=== PATIENT | female | born 1960 | race Caucasian/White ===

== ENCOUNTER 2018-01-13 13:49 | Emergency (ER) | payer SELFPAY ==
[~2018-01-13] VITALS: Ht 160 cm; Wt 53.6 kg
[2018-01-13 13:59] VITALS: TEMP 36.9; Ht 160 cm; Wt 53.6 kg
[2018-01-13] MEDS ORDERED: ONDANSETRON INJ 2 MG/ML 2 ML VIAL IV STA (14:11)
[2018-01-13] MEDS ORDERED: SODIUM CHLORIDE 0.9% 1000ML 1,000 ML IV STA ×2 (14:11)
[2018-01-13] MEDS ORDERED: FAMOTIDINE 20MG/5ML IV PUSH IV STA (14:11)
[2018-01-13] MEDS ORDERED: HYDROmorphone INJ 1 MG/ML SYR IV PRN (14:15)
--- NOTE | 2018-01-13 14:32 | DIAGNOSTIC IMAGING REPORT ---
CHEST ONE VIEW PORTABLE CLINICAL HISTORY: Abdominal pain. COMPARISON STUDY: No previous studies for comparison. FINDINGS: Upper abdominal surgical clips are noted. No lucency is identified under the hemidiaphragms to suggest pneumoperitoneum. Lung volumes are normal. No consolidation is noted. There is no evidence for pulmonary edema. There is mild dextroscoliosis of the lower thoracic spine. Cardiomediastinal silhouette is normal. IMPRESSION: No acute cardiopulmonary findings. Electronically signed by: Reid Esquivel M.D. 01/13/2018 2:31 PM Dictated Date/Time: 01/13/2018 2:28 PM
[2018-01-13 14:54] LABS: BASO % 0.2 %; BASO ABS # 0.02 K/uL (0-0.2); EOS % 0.6 %; EOS ABS # 0.08 K/uL (0-0.5); HEMATOCRIT 43.5 % (37-47); HEMOGLOBIN 14.7 g/dL (12.0-16.0); IG# 0.02 K/uL (0.00-0.02); LYMPH % 27.1 %; LYMPH ABS # 3.43 K/uL (1.2-3.4); MEAN CELL VOLUME 88.4 fL (80-100); MEAN CORPUSCULAR HEMOGLOBIN 29.9 pg (25-34); MEAN CORPUSCULAR HGB CONC 33.8 g/dl (32-36); MEAN PLATELET VOLUME 10.6 fL (7.4-10.4); MONO % 7.7 %; MONO ABS # 0.97 K/uL (0.11-0.59); NEUT % 64.2 %; NEUT ABS # 8.14 K/uL (1.4-6.5); PLATELET COUNT 256 K/uL (130-400); RED CELL DISTRIBUTION WIDTH CV 14.7 % (11.5-14.5); RED CELL DISTRIBUTION WIDTH SD 47.4 fL (36.4-46.3); WHITE BLOOD COUNT 12.66 K/uL (4.8-10.8)
--- NOTE | 2018-01-13 15:05 | DIAGNOSTIC IMAGING REPORT ---
ABD/PELVIS NO IV OR ORAL CONT CLINICAL HISTORY: 57 years-old Female presenting with acute abdominal pain, vomiting, upper. prior gastric bypass. TECHNIQUE: Multidetector CT of the abdomen and pelvis was performed without the use of intravenous contrast. IV contrast: None. A dose lowering technique was used consistent with the principles of ALARA (as low as reasonably achievable). COMPARISON: None. CT DOSE (mGy.cm): The estimated cumulative dose is 255.03 mGy.cm. FINDINGS: Labourers topogram: Unremarkable. Lung bases: Mosaic attenuation could suggest small airways disease. Normal heart size. No pericardial or pleural effusion. 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 Normal density. Biliary: No gross biliary ductal dilatation allowing for noncontrast technique. Normal gallbladder. Pancreas: Normal noncontrast appearance. Spleen: Few parenchymal calcifications could suggest prior granulomatous infection. Adrenal glands: Normal noncontrast appearance. Kidneys and ureters: Normal noncontrast appearance. No nephrolithiasis. No hydronephrosis. Ureters not well visualized. Bladder: Incompletely evaluated secondary to underdistention. Pelvic organs: Uterus surgically absent. Fluid density region in the left hemipelvis (series 3 image 295), most likely bowel. Bowel: Mild stool burden throughout normal caliber colon. The appendix is normal and located in the right upper quadrant. Slight narrowing at a suspected mesenteric defect (series 3 image 151). Mild upstream distention of a loop of small bowel (series 3 image 99), which measures 3.5 cm in diameter. This is essentially at the distal small bowel anastomosis. No complete bowel obstruction. Postsurgical changes of right retrocolic Bob-en-Y gastric bypass. Distal anastomosis is patent. Pancreaticobiliary limb nondilated. Excluded stomach nondilated though containing small amount of gas. Intraesophageal fluid noted. Peritoneal cavity: No free fluid or intraperitoneal gas. Lymph nodes: No gross lymphadenopathy allowing for noncontrast technique. Vasculature: Atherosclerosis of the normal caliber abdominal aorta. Abdominal wall: Small fat-containing umbilical hernia. Musculoskeletal: Normal. IMPRESSION: 1. Postsurgical changes of retrocolic Bob-en-Y gastric bypass. No complete bowel obstruction though slight narrowing evident in a loop of small bowel in the left upper quadrant abscess suspected mesenteric defect. There is slight dilation of bowel upstream to this, which could suggest mild low-grade partial obstruction. No other complication is evident. 2. No other evidence of acute intra-abdominal pathology. 3. Status post hysterectomy. Electronically signed by: Manjinder Anthony M.D. 01/13/2018 3:04 PM Dictated Date/Time: 01/13/2018 2:54 PM
[2018-01-13 15:08] LABS: ALBUMIN 4.2 gm/dl (3.4-5.0); ALT/SGPT 15 U/L (12-78); AST/SGOT 12 U/L (15-37); BLOOD UREA NITROGEN 10 mg/dl (7-18); CALCIUM 9.4 mg/dl (8.5-10.1); CARBON DIOXIDE 27 mmol/L (21-32); CREATININE 0.73 mg/dl (0.60-1.20); GLUCOSE 83 mg/dl (70-99); LIPASE 92 U/L (73-393); POTASSIUM 3.7 mmol/L (3.5-5.1); SODIUM 140 mmol/L (136-145)
[2018-01-13] MEDS ORDERED: ACET-1256 PO (15:10)
[2018-01-13] MEDS ORDERED: PANT40TA PO (15:10)
[2018-01-13 15:13] LABS: ALKALINE PHOSPHATASE 95 U/L (45-117)
[2018-01-13] MEDS ORDERED: ONDA8TAB62 SL (17:26)
[2018-01-13] MEDS ORDERED: HYDR-3419 PO (17:26)
--- NOTE | 2018-01-13 17:42 | Discharge Instructions ---
Discharge Instructions Date of Service January 13, 2018. Admission Reason for Admission: Severe Stomach Pain N/V Unable To Eat Past 5 Days Discharge Discharge Diagnosis / Problem: partial small bowel obstruction Discharge Goals Goal(s): Diagnostic testing, Therapeutic intervention Activity Recommendations Activity Limitations: resume your previous activity . Instructions / Follow-Up Instructions / Follow-Up partial small bowel obstruction -fortunately neither your CT or physical exam are consistent with a trapped hernia, truly trapped bowel, or any other catastrophic findings. more than likely this is an obstruction from scar tissue - generally when someone has an abdominal surgery, bands of scar tissue can form, and the intestines can get "kinked" around that scar tissue. fortunately, in about 95% of cases, the intestines "wiggle their way free" over several days and the obstruction resolves -for now, since your clear preference would be to try to manage this at home, and their are no catastrophic signs on exam/CT/labwork - we'll have you work on taking care of this from home -pain control -- use the hydrocodone/acetaminophen up to every six hours as needed for pain. if you're having really intense pain, pain that doesn't improve with the pain meds, or pain that lasts instead of the previous pattern of coming and going, those would be possible signs that your intestines are compromised and you should come back right away -nausea control - use the ondansetron up to every six hours as needed for nausea ; as a good rule for safety, if you're not able to drink liquids, and have nausea that isn't getting settled with the nausea medication, we'd want you back for further evaluation and/or admission -diet - until your pain/nausea are gone, and your bowels are moving more, we'll want you to just be on a clear liquid diet -- make sure you're staying adequately hydrated (a reasonable benchmark would be about 60-70 ounces of fluid a day) -- once Bucky Mendoza sees that you're doing better and things have resolved, then you'll be able to get back (slowly, over a day or two) to a regular diet -duration - typically a small bowel obstruction is about a 3 day hospital admission, on average. something on the order of 95% of cases self-resolve, but that does mean that there's a small but real chance that this could end in needing a surgery. to keep you safe, an arbitrary but reasonable line in the sand is if it's not clear that this is resolving by Monday 01/15, we should have you back in the hospital for further evaluation and a surgical consult. as we discussed, there's about a 5% chance that this could end up with you having to come back, be admitted, and have a surgery -- and a very small but not zero chance of this actually worsening to where you would not only need a surgery to break scar tissue and free up the obstruction, but where you could have bowel that needs to be resected. -follow up with Bucky Mendoza tomorrow, and then daily until you're clearly all better. he'll need to examine your abdomen to ensure things still examine reassuring (nothing that has evolved to resemble a "surgical abdomen"), he'll examine to check your hydration status, and he'll help "keep you safe from you! " on the duration/severity/etc. if need arises and you're not getting better, he can also call us as hospitalists directly to have you admitted and save the repeat trip through the ER ([phone], and have the drilling field operator page the admitting hospitalist for Dalila Campuzano) despite all of the above, your abdomen does examine really reassuring, and hopefully this will just start to slowly improve. go slow with oral intake, pay attention to your symptoms, and don't hesitate to come back if anything seems at all bad or scary. Current Hospital Diet Patient's current hospital diet: Discharge Diet Recommended Diet: Clear Liquid Diet Procedures Procedures Performed: ] ABD/PELVIS NO IV OR ORAL CONT CLINICAL HISTORY: 57 years-old Female presenting with acute abdominal pain, vomiting, upper. prior gastric bypass. TECHNIQUE: Multidetector CT of the abdomen and pelvis was performed without the use of intravenous contrast. IV contrast: None. A dose lowering technique was used consistent with the principles of ALARA (as low as reasonably achievable). COMPARISON: None. CT DOSE (mGy.cm): The estimated cumulative dose is 255.03 mGy.cm. FINDINGS: Drywall Metal Stud Worker topogram: Unremarkable. Lung bases: Mosaic attenuation could suggest small airways disease. Normal heart size. No pericardial or pleural effusion. 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 Normal density. Biliary: No gross biliary ductal dilatation allowing for noncontrast technique. Normal gallbladder. Pancreas: Normal noncontrast appearance. Spleen: Few parenchymal calcifications could suggest prior granulomatous infection. Adrenal glands: Normal noncontrast appearance. Kidneys and ureters: Normal noncontrast appearance. No nephrolithiasis. No hydronephrosis. Ureters not well visualized. Bladder: Incompletely evaluated secondary to underdistention. Pelvic organs: Uterus surgically absent. Fluid density region in the left hemipelvis (series 3 image 295), most likely bowel. Bowel: Mild stool burden throughout normal caliber colon. The appendix is normal and located in the right upper quadrant. Slight narrowing at a suspected mesenteric defect (series 3 image 151). Mild upstream distention of a loop of small bowel (series 3 image 99), which measures 3.5 cm in diameter. This is essentially at the distal small bowel anastomosis. No complete bowel obstruction. Postsurgical changes of right retrocolic Bob-en-Y gastric bypass. Distal anastomosis is patent. Pancreaticobiliary limb nondilated. Excluded stomach nondilated though containing small amount of gas. Intraesophageal fluid noted. Peritoneal cavity: No free fluid or intraperitoneal gas. Lymph nodes: No gross lymphadenopathy allowing for noncontrast technique. Vasculature: Atherosclerosis of the normal caliber abdominal aorta. Abdominal wall: Small fat-containing umbilical hernia. Musculoskeletal: Normal. IMPRESSION: 1. Postsurgical changes of retrocolic Bob-en-Y gastric bypass. No complete bowel obstruction though slight narrowing evident in a loop of small bowel in the left upper quadrant abscess suspected mesenteric defect. There is slight dilation of bowel upstream to this, which could suggest mild low-grade partial obstruction. No other complication is evident. 2. No other evidence of acute intra-abdominal pathology. 3. Status post hysterectomy. Electronically signed by: Manjinder Anthony M.D. Pending Studies Studies pending at discharge: no Laboratory Results Last 24 Hours Test 01/13/18 00:00 01/13/18 14:20 Urine Color YELLOW Urine Appearance CLEAR Urine pH 5.0 Urine Specific [place] 1.016 Urine Protein NEG Urine Glucose (UA) NEG Urine Ketones NEG Urine Occult Blood NEG Urine Nitrite NEG Urine Bilirubin NEG Urine Urobilinogen NEG Urine Leukocyte Esterase NEG White Blood Count 12.66 K/uL Red Blood Count 4.92 M/uL Hemoglobin 14.7 g/dL Hematocrit 43.5 % Mean Corpuscular Volume 88.4 fL Mean Corpuscular Hemoglobin 29.9 pg Mean Corpuscular Hemoglobin Concent 33.8 g/dl Platelet Count 256 K/uL Mean Platelet Volume 10.6 fL Neutrophils (%) (Auto) 64.2 % Lymphocytes (%) (Auto) 27.1 % Monocytes (%) (Auto) 7.7 % Eosinophils (%) (Auto) 0.6 % Basophils (%) (Auto) 0.2 % Neutrophils # (Auto) 8.14 K/uL Lymphocytes # (Auto) 3.43 K/uL Monocytes # (Auto) 0.97 K/uL Eosinophils # (Auto) 0.08 K/uL Basophils # (Auto) 0.02 K/uL RDW Standard Deviation 47.4 fL RDW Coefficient of Variation 14.7 % Immature Granulocyte % (Auto) 0.2 % Immature Granulocyte # (Auto) 0.02 K/uL Sodium Level 140 mmol/L Potassium Level 3.7 mmol/L Chloride Level 106 mmol/L Carbon Dioxide Level 27 mmol/L Anion Gap 6.0 mmol/L Blood Urea Nitrogen 10 mg/dl Creatinine 0.73 mg/dl Est Creatinine Clear Calc Drug Dose 71.2 ml/min Estimated GFR () 106.7 Estimated GFR (Non- 92.1 BUN/Creatinine Ratio 13.0 Random Glucose 83 mg/dl Calcium Level 9.4 mg/dl Total Bilirubin 0.4 mg/dl Direct Bilirubin 0.1 mg/dl Aspartate Amino Transf (AST/SGOT) 12 U/L Alanine Aminotransferase (ALT/SGPT) 15 U/L Alkaline Phosphatase 95 U/L Troponin I < 0.015 ng/ml Total Protein 8.0 gm/dl Albumin 4.2 gm/dl Lipase 92 U/L Medical Emergencies . Who to Call and When: Medical Emergencies: If at any time you feel your situation is an emergency, please call 911 immediately. . Non-Emergent Contact Non-Emergency issues call your: Primary Care Provider (tomorrow, then daily until you're better) . . "Provider Documentation" section prepared by Prabhjot Haque. .
--- NOTE | 2018-01-13 17:47 | Medical Consult ---
Consultation Date of Consultation: January 13, 2018. Attending Physician: Prabhjot Haque Reason for Consultation: SBO History of Present Illness 57 y/o F with PMH of gastric bypass surgery 10 years ago, gastric ulcer about 2 years ago presented to the ER with c/o worsening abdominal pain, nausea and vomiting for about 5 days. She stated that she developed intermittent abdominal pain for about a month which worsened in the last 5 days. pain is in the epigastric area , intermittent, 8/10 and associated with nausea and vomiting. denies any BRBPR, melena, urinary symptoms. denies any fevers/chills. Past Medical/Surgical History Gastric ulcer h/o gastric bypass Social History Smoking Status: Current Every Day Smoker Allergies Coded Allergies: No Known Allergies (Unverified , 01/13/18) Home Medications Reported Home Medications Medications Dose Route/Sig Max Daily Dose Days Date Category Vicodin (5MG/300MG) (Hydrocodon/Acetaminophen 5MG/300MG) 1 Tab Tab 1 Tab PO Q6H PRN 01/13/18 Rx Zofran Odt (Ondansetron HCl) 8 Mg Soltab 8 Mg SL Q6H PRN 01/13/18 Rx Tylenol (Acetaminophen) 500 Mg Tab 1,000 Mg PO UD 01/13/18 Reported Protonix (Pantoprazole Sodium) 40 Mg Tab 40 Mg PO QAM 01/13/18 Reported Current Inpatient Medications Current Inpatient Medications Medications (Trade) Dose Ordered Sig/[place] Route Start Time Stop Time Status Last Admin Dose Admin Sodium Chloride 1,000 ml @ 125 mls/hr Q8H STAT IV 01/13/18 14:11 01/13/18 22:10 01/13/18 14:27 125 MLS/HR Hydromorphone HCl (Dilaudid Inj) 1 mg Q15M PRN IV 01/13/18 14:15 01/27/18 14:14 01/13/18 14:26 1 MG Review of Systems Constitutional: No fever, No chills Eyes: No worsening of vision ENT: No hearing loss Respiratory: No cough, No sputum, No wheezing Cardiovascular: No chest pain Abdomen: + pain, + nausea, + vomiting Musculoskeletal: No joint pain Genitourinary - Female: No dysuria, No urinary frequency, No urinary urgency Neurologic: No memory loss Psychiatric: No depression symptoms Endocrine: No fatigue Physical Exam Date Time Temp Pulse Resp B/P (MAP) Pulse Ox O2 Delivery O2 Flow Rate FiO2 01/13/18 17:02 56 16 130/76 100 01/13/18 16:49 56 16 103/76 100 01/13/18 16:19 61 16 112/78 97 01/13/18 15:49 62 17 96 01/13/18 15:46 120/80 01/13/18 15:30 112/64 01/13/18 14:19 85 28 98 01/13/18 14:18 81 01/13/18 14:17 132/79 01/13/18 13:59 36.9 93 20 129/85 97 Room Air General Appearance: WD/WN, no apparent distress Eyes: normal inspection Neck: supple Respiratory/Chest: lungs clear, normal breath sounds, no respiratory distress Cardiovascular: regular rate, rhythm Abdomen/GI: normal bowel sounds, soft, + tenderness (mild epigastric tenderness ) Extremities/Musculoskelatal: no pedal edema Neurologic/Psych: alert, normal mood/affect, oriented x 3 Laboratory Results Last 24 Hours Test 01/13/18 00:00 01/13/18 14:20 Urine Color YELLOW Urine Appearance CLEAR Urine pH 5.0 Urine Specific [place] 1.016 Urine Protein NEG Urine Glucose (UA) NEG Urine Ketones NEG Urine Occult Blood NEG Urine Nitrite NEG Urine Bilirubin NEG Urine Urobilinogen NEG Urine Leukocyte Esterase NEG White Blood Count 12.66 K/uL Red Blood Count 4.92 M/uL Hemoglobin 14.7 g/dL Hematocrit 43.5 % Mean Corpuscular Volume 88.4 fL Mean Corpuscular Hemoglobin 29.9 pg Mean Corpuscular Hemoglobin Concent 33.8 g/dl Platelet Count 256 K/uL Mean Platelet Volume 10.6 fL Neutrophils (%) (Auto) 64.2 % Lymphocytes (%) (Auto) 27.1 % Monocytes (%) (Auto) 7.7 % Eosinophils (%) (Auto) 0.6 % Basophils (%) (Auto) 0.2 % Neutrophils # (Auto) 8.14 K/uL Lymphocytes # (Auto) 3.43 K/uL Monocytes # (Auto) 0.97 K/uL Eosinophils # (Auto) 0.08 K/uL Basophils # (Auto) 0.02 K/uL RDW Standard Deviation 47.4 fL RDW Coefficient of Variation 14.7 % Immature Granulocyte % (Auto) 0.2 % Immature Granulocyte # (Auto) 0.02 K/uL Sodium Level 140 mmol/L Potassium Level 3.7 mmol/L Chloride Level 106 mmol/L Carbon Dioxide Level 27 mmol/L Anion Gap 6.0 mmol/L Blood Urea Nitrogen 10 mg/dl Creatinine 0.73 mg/dl Est Creatinine Clear Calc Drug Dose 71.2 ml/min Estimated GFR () 106.7 Estimated GFR (Non- 92.1 BUN/Creatinine Ratio 13.0 Random Glucose 83 mg/dl Calcium Level 9.4 mg/dl Total Bilirubin 0.4 mg/dl Direct Bilirubin 0.1 mg/dl Aspartate Amino Transf (AST/SGOT) 12 U/L Alanine Aminotransferase (ALT/SGPT) 15 U/L Alkaline Phosphatase 95 U/L Troponin I < 0.015 ng/ml Total Protein 8.0 gm/dl Albumin 4.2 gm/dl Lipase 92 U/L CHEST ONE VIEW PORTABLE CLINICAL HISTORY: Abdominal pain. COMPARISON STUDY: No previous studies for comparison. FINDINGS: Upper abdominal surgical clips are noted. No lucency is identified under the hemidiaphragms to suggest pneumoperitoneum. Lung volumes are normal. No consolidation is noted. There is no evidence for pulmonary edema. There is mild dextroscoliosis of the lower thoracic spine. Cardiomediastinal silhouette is normal. IMPRESSION: No acute cardiopulmonary findings. Electronically signed by: Reid Esquivel M.D. 01/13/2018 2:31 PM Dictated Date/Time: 01/13/2018 2:28 PM ABD/PELVIS NO IV OR ORAL CONT CLINICAL HISTORY: 57 years-old Female presenting with acute abdominal pain, vomiting, upper. prior gastric bypass. TECHNIQUE: Multidetector CT of the abdomen and pelvis was performed without the use of intravenous contrast. IV contrast: None. A dose lowering technique was used consistent with the principles of ALARA (as low as reasonably achievable). COMPARISON: None. CT DOSE (mGy.cm): The estimated cumulative dose is 255.03 mGy.cm. FINDINGS: Merchandise Director topogram: Unremarkable. Lung bases: Mosaic attenuation could suggest small airways disease. Normal heart size. No pericardial or pleural effusion. 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 Normal density. Biliary: No gross biliary ductal dilatation allowing for noncontrast technique. Normal gallbladder. Pancreas: Normal noncontrast appearance. Spleen: Few parenchymal calcifications could suggest prior granulomatous infection. Adrenal glands: Normal noncontrast appearance. Kidneys and ureters: Normal noncontrast appearance. No nephrolithiasis. No hydronephrosis. Ureters not well visualized. Bladder: Incompletely evaluated secondary to underdistention. Pelvic organs: Uterus surgically absent. Fluid density region in the left hemipelvis (series 3 image 295), most likely bowel. Bowel: Mild stool burden throughout normal caliber colon. The appendix is normal and located in the right upper quadrant. Slight narrowing at a suspected mesenteric defect (series 3 image 151). Mild upstream distention of a loop of small bowel (series 3 image 99), which measures 3.5 cm in diameter. This is essentially at the distal small bowel anastomosis. No complete bowel obstruction. Postsurgical changes of right retrocolic Bob-en-Y gastric bypass. Distal anastomosis is patent. Pancreaticobiliary limb nondilated. Excluded stomach nondilated though containing small amount of gas. Intraesophageal fluid noted. Peritoneal cavity: No free fluid or intraperitoneal gas. Lymph nodes: No gross lymphadenopathy allowing for noncontrast technique. Vasculature: Atherosclerosis of the normal caliber abdominal aorta. Abdominal wall: Small fat-containing umbilical hernia. Musculoskeletal: Normal. IMPRESSION: 1. Postsurgical changes of retrocolic Bob-en-Y gastric bypass. No complete bowel obstruction though slight narrowing evident in a loop of small bowel in the left upper quadrant abscess suspected mesenteric defect. There is slight dilation of bowel upstream to this, which could suggest mild low-grade partial obstruction. No other complication is evident. 2. No other evidence of acute intra-abdominal pathology. 3. Status post hysterectomy. Electronically signed by: Manjinder Anthony M.D. Assessment & Plan 57 y/o F with PMH of gastric bypass surgery 10 years ago, gastric ulcer about 2 years ago presented to the ER with c/o worsening abdominal pain, nausea and vomiting for about 5 days. She stated that she developed intermittent abdominal pain for about a month which worsened in the last [address] abd/pelvis was obtained which revealed a low grade partial small bowel obstruction. Medicine was consulted for admission but patient stated that she would like to go home and manage her symptoms conservatively as she does not have medical insurance. Considering that her vitals signs are stable, lab work including CBC, BMP and UA were unremarkable and physical exam with soft abdomen , she was discharged home in a stable condition with instructions for a close follow up with her PCP every day until her symptoms improved. she was discharged with pain medications - [place] and Zofran for nausea and vomiting. She was instructed to follow a clear liquid diet and advance it as tolerated. She was also given instructions about returning to the ER if her symptoms worsened or failed to improve. She verbalized understanding. Resident Physician Supervision Note: I interviewed and examined the patient. Discussed with Dr. Baumann and agree with findings and plan as documented in the note. Any exceptions or clarifications are listed here: None Documented By: Prabhjot Haque abdominal pain/nausea/vomiting - but actually doing better now (+) flatus and some BM really really wants to try home management if at all possible, willing to f/u w PCP closely, willing to come back if anything untoward occurring, undestands that in managing this as outpt she is taking more risk on her shoulders for outcomes - she and both understand vitals, labs noted. nc at mmm. abd soft (+) BS, soft, nd minimal epigastric ttp no other tenderness no guarding no rebound SBO - appearing partial. no evidence of incarceration/severe duress/etc. pt appearing well hydrated. with exam and (+) flatus/etc suspect she may actually be resolving. extensively discussed risks/benefits and possible catastrophes. she and very rationally express good understanding of risks and course of outpt management for this. discussed "red flags" that would warrant immediate intervention, and the small but real increased risk that if she were to develop surgical complications management from home will carry higher risk of emergency surgery/ gut/bowel resection/etc. however, she appears well hydrated and overall fairly low risk, that i do not feel compelled to "force" admission and her desired approach for management appears reasonable and rational. further, she notes her PCP is very reliable and very easy access - to have daily follow up until better. discussed natural course of improvement - and if she's not clearly improved by 5/4 would want admission for surgical eval even if nothing else has progressed to worsening. stable for discharge to home, PCP tomorrow, see instructions sent with pt as well, otherwise as above Additional Copies To Bucky Mendoza PA-C Resident Tracking Resident Involvement: Resident Care Provided Care Provided: Adult ED
[2018-01-13 18:02] VITALS: BP 129/77; PULSE 59; O2SAT 99
--- NOTE | 2018-01-13 18:48 | EMERGENCY ROOM VISIT NOTE ---
History Report prepared by Marni: Bucky Daniel Under the Supervision of: Dr. Kevin Pina M.D. First contact with patient: 14:03 Chief Complaint: ABDOMINAL PAIN Stated Complaint: SEVERE STOMACH PAIN N/V UNABLE TO EAT PAST 5 DAYS History of Present Illness The patient is a 57 year old female who presents to the Emergency Room with complaints of constant epigastric abdominal pain beginning five days ago. She rates her pain as an 8/10 in severity. She describes the pain as "ripping". The patient states that she has had very little to eat in the past five days. She has a previous history of gastric ulcer, but states that her current symptoms feel different. She also complains of nausea and dry heaves. The patient is on Protonix s/p gastric bypass (10 years ago). She states that she sometimes gets headaches and chest pain from her dry heaving. Pt denies LOC, fevers, chills, diaphoresis, visual changes, neck pain, breathing difficulties, vomiting, back pain, melena, hematochezia, urinary symptoms, numbness, weakness, lymphadenopathy, rash, or other complaints. Source of History: patient Onset: Five days ago Position: abdomen (epigastric) Symptom Intensity: 8/10 Quality: other ("ripping") Timing: constant Associated Symptoms: + nausea Note: Positive: dry heaves. Review of Systems See HPI for pertinent positives and negatives. A total of ten systems were reviewed and were otherwise negative. Past Medical & Surgical Medical Problems: (1) Gastric ulcer (2) GI bleed Surgical Problems: (1) H/O gastric bypass Family History No pertinent family history stated. Social History Smoking Status: Current Every Day Smoker Marital Status: Housing Status: lives with family Current/Historical Medications Scheduled Acetaminophen (Tylenol), 1,000 MG PO UD Pantoprazole Sodium (Protonix), 40 MG PO QAM Scheduled PRN Hydrocodon/Acetaminophen 5MG/300MG (Vicodin (5MG/300MG)), 1 TAB PO Q6H PRN for Pain Ondansetron Odt (Zofran Odt), 8 MG SL Q6H PRN for Nausea Allergies Coded Allergies: No Known Allergies (Unverified , 01/13/18) Physical Exam Vital Signs Date Time Temp Pulse Resp B/P (MAP) Pulse Ox O2 Delivery O2 Flow Rate FiO2 01/13/18 18:02 59 14 129/77 99 01/13/18 17:02 56 16 130/76 100 01/13/18 16:49 56 16 103/76 100 01/13/18 16:19 61 16 112/78 97 01/13/18 15:49 62 17 96 01/13/18 15:46 120/80 01/13/18 15:30 112/64 01/13/18 14:19 85 28 98 01/13/18 14:18 81 01/13/18 14:17 132/79 01/13/18 13:59 36.9 93 20 129/85 97 Room Air Physical Exam GENERAL: Awake, alert, well-appearing, in no distress HENT: Normocephalic, atraumatic. Oropharynx unremarkable. EYES: Normal conjunctiva. Sclera non-icteric. NECK: Supple. No nuchal rigidity. FROM. No masses. RESPIRATORY: Clear to auscultation. No wheezes. No rales. Normal respiratory effort. CARDIAC: Normal rate. Normal rhythm. No murmurs. No rubs. Extremities warm and well perfused. Pulses equal. No JVD. GI: Soft, non-distended. Epigastric tenderness to palpation. No rebound or guarding. No masses. RECTAL: Deferred. MUSCULOSKELETAL: Atraumatic. Chest examination reveals no tenderness. The back is symmetrical on inspection without obvious abnormality. There is no CVA tenderness to palpation. No joint edema. LOWER EXTREMITIES: Calves are equal size bilaterally and non-tender. No edema. No discoloration. NEURO: Normal sensorium. No sensory or motor deficits noted. SKIN: No rash or jaundice noted. Medical Decision & Procedures ER Provider Diagnostic Interpretation: Radiology results as stated below per my review and radiologist interpretation: CHEST ONE VIEW PORTABLE FINDINGS: Upper abdominal surgical clips are noted. No lucency is identified under the hemidiaphragms to suggest pneumoperitoneum. Lung volumes are normal. No consolidation is noted. There is no evidence for pulmonary edema. There is mild dextroscoliosis of the lower thoracic spine. Cardiomediastinal silhouette is normal. IMPRESSION: No acute cardiopulmonary findings. Electronically signed by: Reid Esquivel M.D. 01/13/2018 2:31 PM ABD/PELVIS NO IV OR ORAL CONT FINDINGS: Redevelopment Manager topogram: Unremarkable. Lung bases: Mosaic attenuation could suggest small airways disease. Normal heart size. No pericardial or pleural effusion. 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 Normal density. Biliary: No gross biliary ductal dilatation allowing for noncontrast technique. Normal gallbladder. Pancreas: Normal noncontrast appearance. Spleen: Few parenchymal calcifications could suggest prior granulomatous infection. Adrenal glands: Normal noncontrast appearance. Kidneys and ureters: Normal noncontrast appearance. No nephrolithiasis. No hydronephrosis. Ureters not well visualized. Bladder: Incompletely evaluated secondary to underdistention. Pelvic organs: Uterus surgically absent. Fluid density region in the left hemipelvis (series 3 image 295), most likely bowel. Bowel: Mild stool burden throughout normal caliber colon. The appendix is normal and located in the right upper quadrant. Slight narrowing at a suspected mesenteric defect (series 3 image 151). Mild upstream distention of a loop of small bowel (series 3 image 99), which measures 3.5 cm in diameter. This is essentially at the distal small bowel anastomosis. No complete bowel obstruction. Postsurgical changes of right retrocolic Bob-en-Y gastric bypass. Distal anastomosis is patent. Pancreaticobiliary limb nondilated. Excluded stomach nondilated though containing small amount of gas. Intraesophageal fluid noted. Peritoneal cavity: No free fluid or intraperitoneal gas. Lymph nodes: No gross lymphadenopathy allowing for noncontrast technique. Vasculature: Atherosclerosis of the normal caliber abdominal aorta. Abdominal wall: Small fat-containing umbilical hernia. Musculoskeletal: Normal. IMPRESSION: 1. Postsurgical changes of retrocolic Bob-en-Y gastric bypass. No complete bowel obstruction though slight narrowing evident in a loop of small bowel in the left upper quadrant abscess suspected mesenteric defect. There is slight dilation of bowel upstream to this, which could suggest mild low-grade partial obstruction. No other complication is evident. 2. No other evidence of acute intra-abdominal pathology. 3. Status post hysterectomy Electronically signed by: Manjinder Anthony M.D. 01/13/2018 3:04 PM Laboratory Results 01/13/18 14:20 Red Blood Count 4.92, Mean Corpuscular Volume 88.4, Mean Corpuscular Hemoglobin 29.9, Mean Corpuscular Hemoglobin Concent 33.8, Mean Platelet Volume 10.6, Neutrophils (%) (Auto) 64.2, Lymphocytes (%) (Auto) 27.1, Monocytes (%) (Auto) 7.7, Eosinophils (%) (Auto) 0.6, Basophils (%) (Auto) 0.2, Neutrophils # (Auto) 8.14, Lymphocytes # (Auto) 3.43, Monocytes # (Auto) 0.97, Eosinophils # (Auto) 0.08, Basophils # (Auto) 0.02 01/13/18 14:20 Test 01/13/18 00:00 01/13/18 14:20 Urine Color YELLOW Urine Appearance CLEAR (CLEAR) Urine pH 5.0 (4.5-7.5) Urine Specific [place] 1.016 (1.000-1.030) Urine Protein NEG (NEG) Urine Glucose (UA) NEG (NEG) Urine Ketones NEG (NEG) Urine Occult Blood NEG (NEG) Urine Nitrite NEG (NEG) Urine Bilirubin NEG (NEG) Urine Urobilinogen NEG (NEG) Urine Leukocyte Esterase NEG (NEG) White Blood Count 12.66 K/uL (4.8-10.8) Red Blood Count 4.92 M/uL (4.2-5.4) Hemoglobin 14.7 g/dL (12.0-16.0) Hematocrit 43.5 % (37-47) Mean Corpuscular Volume 88.4 fL (80-100) Mean Corpuscular Hemoglobin 29.9 pg (25-34) Mean Corpuscular Hemoglobin Concent 33.8 g/dl (32-36) Platelet Count 256 K/uL (130-400) Mean Platelet Volume 10.6 fL (7.4-10.4) Neutrophils (%) (Auto) 64.2 % Lymphocytes (%) (Auto) 27.1 % Monocytes (%) (Auto) 7.7 % Eosinophils (%) (Auto) 0.6 % Basophils (%) (Auto) 0.2 % Neutrophils # (Auto) 8.14 K/uL (1.4-6.5) Lymphocytes # (Auto) 3.43 K/uL (1.2-3.4) Monocytes # (Auto) 0.97 K/uL (0.11-0.59) Eosinophils # (Auto) 0.08 K/uL (0-0.5) Basophils # (Auto) 0.02 K/uL (0-0.2) RDW Standard Deviation 47.4 fL (36.4-46.3) RDW Coefficient of Variation 14.7 % (11.5-14.5) Immature Granulocyte % (Auto) 0.2 % Immature Granulocyte # (Auto) 0.02 K/uL (0.00-0.02) Anion Gap 6.0 mmol/L (3-11) Est Creatinine Clear Calc Drug Dose 71.2 ml/min Estimated GFR () 106.7 Estimated GFR (Non- 92.1 BUN/Creatinine Ratio 13.0 (10-20) Calcium Level 9.4 mg/dl (8.5-10.1) Total Bilirubin 0.4 mg/dl (0.2-1) Direct Bilirubin 0.1 mg/dl (0-0.2) Aspartate Amino Transf (AST/SGOT) 12 U/L (15-37) Alanine Aminotransferase (ALT/SGPT) 15 U/L (12-78) Alkaline Phosphatase 95 U/L (45-117) Troponin I < 0.015 ng/ml (0-0.045) Total Protein 8.0 gm/dl (6.4-8.2) Albumin 4.2 gm/dl (3.4-5.0) Lipase 92 U/L (73-393) Laboratory results reviewed by me Medications Administered Medications (Trade) Dose Ordered Sig/Santa Route Start Time Stop Time Status Last Admin Dose Admin Sodium Chloride 1,000 ml @ 125 mls/hr Q8H STAT IV 01/13/18 14:11 01/13/18 18:33 DC 01/13/18 14:27 125 MLS/HR Sodium Chloride 1,000 ml @ 999 mls/hr Q1H1M STAT IV 01/13/18 14:11 01/13/18 15:11 DC 01/13/18 14:11 999 MLS/HR Ondansetron HCl (Zofran Inj) 4 mg NOW STAT IV 01/13/18 14:11 01/13/18 14:14 DC 01/13/18 14:27 4 MG Hydromorphone HCl (Dilaudid Inj) 1 mg Q15M PRN IV 01/13/18 14:15 01/13/18 18:33 DC 01/13/18 14:26 1 MG Famotidine (Pepcid 20mg Iv Push) 20 mg ONE STAT IV 01/13/18 14:11 01/13/18 14:14 DC 01/13/18 14:27 20 MG ECG Per My Interpretation Indication: abdominal pain Rate (beats per minute): 72 Rhythm: normal sinus Findings: other (No ST elevations. No PVCs. ) ED Course 1408: The patient was evaluated in room B3B. A complete history and physical exam was performed. 1411: Ordered Pepcid 20 mg IV, Zofran Inj 4 mg IV, Sodium Chloride 1000 ml @ 999 mls/hr IV, Sodium Chloride 1000 ml @ 125 mls/hr IV. 1415: Ordered Dilaudid Inj 1 mg IV. 1525: I called and spoke with the radiologist to confirm the CT read. He explains that there was likely a dictation error, and does not believe the patient has CT evidence of abscess. 1600: Upon reexamination, the patient was resting comfortably. I discussed the test results and treatment plan with her. The patient will be evaluated for further management. Medical Decision Prior records/ancillary studies reviewed. Triage Nursing notes reviewed and agree them. Additional history obtained from family.. The patient's history was concerning for abdominal pain. Differential diagnosis: Etiologies such as marginal ulcer, gastritis, appendicitis, diverticulitis, PUD , biliary pathology, UTI, pancreatitis, obstruction, mesenteric ischemia, aortic pathology, infections, inflammatory bowel disease, renal colic, as well as others were entertained. Physical examination findings: As above. ER treatment provided: IV normal saline hydration IV Pepcid IV Zofran IV Dilaudid On reassessment the patient felt better. Diagnostics interpreted by me: ECG: Normal The labs revealed an unremarkable CBC and chemistry panel. Imaging studies: CT scan as above The patient has findings concerning for a partial small bowel obstruction. Consultation: A consultation was placed with the [facility] hospitalist service. The case was discussed and diagnostics were reviewed. The patient was evaluated in the ER for further treatment. Medication Reconcilliation Current Medication List: was personally reviewed by me Blood Pressure Screening Patient's blood pressure: Normal blood pressure Blood pressure disposition: Did not require urgent referral Consults Time Called: 1555 Consulting Physician: Dr. Morenita VELÁZQUEZ Hospitalist Returned Call: 1600 Discussed the patient's case. The patient will be evaluated for further treatment and disposition. Impression Primary Impression: Partial small bowel obstruction Additional Impressions: Upper abdominal pain Vomiting Scribe Attestation The scribe's documentation has been prepared under my direction and personally reviewed by me in its entirety. I confirm that the note above accurately reflects all work, treatment, procedures, and medical decision making performed by me. Departure Information Dispostion Being Evaluated By Hospitalist Prescriptions Hydrocodon/Acetaminophen 5MG/300MG (VICODIN (5MG/300MG)) 1 Tab Tab 1 TAB PO Q6H Y for Pain, #30 TAB Prov: Prabhjot Haque D.O. 01/13/18 Ondansetron Odt (ZOFRAN ODT) 8 Mg Soltab 8 MG SL Q6H Y for Nausea, #30 TAB Prov: Prabhjot Haque D.O. 01/13/18 Patient Instructions My [facility] Problem Qualifiers
[2018-01-16] MEDS ORDERED: SUCR1TAB29 PO (14:28)
[2018-01-16] MEDS ORDERED: PANT40TA PO (14:28)
== END 2018-01-13 18:06 | disposition home or self-care (01) ==
LOC: C.EDB 13:51
DX: K56.600 Partial intestinal obstruction, unspecified as to cause (principal); Z98.84 Bariatric surgery status; F17.210 Nicotine dependence, cigarettes, uncomplicated; Z79.899 Other long term (current) drug therapy

== ENCOUNTER 2018-01-15 10:15 | Observation (INO) | payer SELFPAY ==
[~2018-01-15] VITALS: Ht 160 cm; Wt 53.8 kg
[~2018-01-15 10:15] MED LIST: ACET-1256 PO; HYDR-3419 PO; ONDA8TAB62 SL; PANT40TA PO
[2018-01-15 10:59] VITALS: BP 144/84; PULSE 63; TEMP 37; O2SAT 98; Ht 160 cm; Wt 53.8 kg
[2018-01-15] MEDS ORDERED: MoRPHine SULFATE 4 MG/ML 1 ML CARP\\VIAL IV PRN (11:15)
[2018-01-15] MEDS ORDERED: ONDANSETRON INJ 2 MG/ML 2 ML VIAL IV PRN (11:15)
[2018-01-15] MEDS ORDERED: LORAZEPAM 2 MG/ML 1 ML VIAL IV PRN ×2 (11:15)
[2018-01-15] MEDS ORDERED: ACETAMINOPHEN IV 650 MG in EMPTY BAG 0 ML IV PRN (11:15)
[2018-01-15 11:38] LABS: BASO % 0.1 %; BASO ABS # 0.01 K/uL (0-0.2); EOS % 0.8 %; EOS ABS # 0.06 K/uL (0-0.5); HEMATOCRIT 42.2 % (37-47); HEMOGLOBIN 14.1 g/dL (12.0-16.0); IG# 0.01 K/uL (0.00-0.02); LYMPH % 33.8 %; LYMPH ABS # 2.39 K/uL (1.2-3.4); MEAN CELL VOLUME 89.4 fL (80-100); MEAN CORPUSCULAR HEMOGLOBIN 29.9 pg (25-34); MONO % 6.2 %; MONO ABS # 0.44 K/uL (0.11-0.59); NEUT ABS # 4.16 K/uL (1.4-6.5); PLATELET COUNT 207 K/uL (130-400); RED CELL DISTRIBUTION WIDTH CV 14.6 % (11.5-14.5); RED CELL DISTRIBUTION WIDTH SD 47.6 fL (36.4-46.3); WHITE BLOOD COUNT 7.07 K/uL (4.8-10.8)
[2018-01-15] MEDS ORDERED: LORAZEPAM INJ 0.5 MG in SYRINGE 0.75 ML IV PRN (11:45)
[2018-01-15] MEDS ORDERED: LORAZEPAM INJ 1 MG in SYRINGE 0.5 ML IV PRN (11:45)
[2018-01-15 11:58] LABS: CALCIUM 9.2 mg/dl (8.5-10.1); CREATININE 0.73 mg/dl (0.60-1.20); POTASSIUM 4.1 mmol/L (3.5-5.1)
[2018-01-15 12:00] LABS: TOTAL PROTEIN 7.8 gm/dl (6.4-8.2)
[2018-01-15 12:05] LABS: MEAN CORPUSCULAR HGB CONC 33.4 g/dl (32-36)
--- NOTE | 2018-01-15 12:07 | DIAGNOSTIC IMAGING REPORT ---
PA CHEST WITH ABDOMINAL SERIES CLINICAL HISTORY: Generalized abdominal pain. FINDINGS: A PA chest radiograph is compared to study dated 01/13/2018. The cardiomediastinal silhouette is unremarkable. Chronic interstitial thickening is similar to previous. No airspace consolidation or large pleural effusion is identified. The skeletal structures are osteopenic. The bony thorax is grossly intact. Supine and erect abdominal radiographs are correlated with abdominal CT dated 01/13/2018. Postoperative change projects over the gastroesophageal junction and left upper quadrant. No bowel obstruction is identified. Moderate fecal retention is seen throughout the colon. No evidence of intraperitoneal free air is seen. There are no abnormal abdominal calcifications. The lumbosacral spine and bony pelvis appear intact. IMPRESSION: 1. No active disease in the chest. 2. There is no radiographic evidence of bowel obstruction. 3. Moderate colonic fecal retention is observed. Electronically signed by: Brandon Le M.D. 01/15/2018 12:06 PM Dictated Date/Time: 01/15/2018 12:03 PM
[2018-01-15] MEDS: SODIUM CHLORIDE 0.9% 1000ML 1,000 ML IV SCH ×2 (12:12→22:38)
[2018-01-15] MEDS: PANTOprazole INJ 40 MG in SYRINGE 0 ML IV SCH ×2 (12:12→20:44)
[2018-01-15] MEDS: MoRPHine SULFATE 4 MG/ML 1 ML CARP\\VIAL IV PRN ×2 (12:13→17:35)
[2018-01-15] MEDS ORDERED: SOAP SUDS ENEMA PR ONE (12:30)
[2018-01-15] MEDS ORDERED: IV FLUIDS COMPLETED PRN (12:45)
--- NOTE | 2018-01-15 13:17 | Surgery Consultation ---
Consultation Date of Consultation: January 15, 2018. Attending Physician: Omar George M.D. Reason for Consultation: abdominal pain, SBO (Adali Tamayo PA-C) History of Present Illness Kelli is a pleasant 57 year-old female who originally presented to emergency room on Thursday01/13/2018 with complaint of abdominal pain, nausea, vomiting, inability to keep anything down for a few days. States the abdominal pain was in the upper midline. Last bowel movements was Thursday morning. Smaller than usual but denies of any hematochezia or melena. History of bleeding ulcer 2 years ago and was aware to look for signs of bleeding in her stools. Workup in the emergency room [address] scan showed slightly dilated loop of small bowel near anastomosis site measuring 3.5 cm consistent with possible partial bowel obstruction however no evidence of complete obstruction. She also had moderate fecal load in the colon. She decided to go home with clear liquid diet and follow with PCP instead of being admitted as she does not have medical insurance. States the pain continued to get worse in the last 2 days and went to her PCP who called for direct admission today. Last passed flatus yesterday but none today. States she does not go to the doctors unless she absolutely has to. Has not had an upper endoscopy to follow up of her marginal ulcer since her episode of bleeding ulcer. Unable to take her Protonix for the last few days as she has not been able to keep anything down. labs today show no leukocytosis, H&H stable. Abdominal x-ray showing no signs of small bowel obstruction and again fecal retention in the colon. (Adali Tamayo PA-C) Social History Smoking Status: Current Every Day Smoker Marital Status: Housing Status: lives with family (Adali Tamayo PA-C) Allergies Coded Allergies: No Known Allergies (Unverified , 01/13/18) Home Medications Scheduled Acetaminophen (Tylenol), 1,000 MG PO UD Pantoprazole Sodium (Protonix), 40 MG PO QAM Scheduled PRN Hydrocodon/Acetaminophen 5MG/300MG (Vicodin (5MG/300MG)), 1 TAB PO Q6H PRN for Pain Ondansetron Odt (Zofran Odt), 8 MG SL Q6H PRN for Nausea Current Inpatient Medications Current Inpatient Medications Medications (Trade) Dose Ordered Sig/Santa Route Start Time Stop Time Status Last Admin Dose Admin Acetaminophen 650 mg/Empty Bag 65 ml @ 260 mls/hr Q6H PRN IV 01/15/18 11:15 02/14/18 11:14 Sodium Chloride 1,000 ml @ 100 mls/hr Q10H IV 01/15/18 11:45 02/14/18 11:44 01/15/18 12:12 100 MLS/HR Morphine Sulfate (MoRPHine SULFATE INJ) 4 mg Q4H PRN IV 01/15/18 11:15 01/29/18 11:14 01/15/18 12:13 4 MG Morphine Sulfate (MoRPHine SULFATE INJ) 2 mg Q4H PRN IV 01/15/18 11:15 01/29/18 11:14 Lorazepam (Ativan Inj) 0.5 mg Q4H PRN IV 01/15/18 11:15 02/14/18 11:14 Lorazepam (Ativan Inj) 1 mg Q4H PRN IV 01/15/18 11:15 02/14/18 11:14 Ondansetron HCl (Zofran Inj) 4 mg Q6H PRN IV 01/15/18 11:15 02/14/18 11:14 Pantoprazole Sodium 40 mg/ Syringe 10 ml @ 5 mls/min BID@0900,2100 IV 01/15/18 11:45 02/14/18 11:44 01/15/18 12:12 5 MLS/MIN Lorazepam 1 mg/ Syringe 1 ml @ 1 mls/min Q4H PRN IV 01/15/18 11:45 02/14/18 11:44 Lorazepam 0.5 mg/ Syringe 1 ml @ 1 mls/min Q4H PRN IV 01/15/18 11:45 02/14/18 11:44 Miscellaneous (Iv Fluids Completed) 1 ea PRN PRN N/A 01/15/18 12:45 01/15/19 12:44 (Adali Tamayo ., PASrinathC) Review of Systems Constitutional: No fever, No chills Respiratory: No cough, No shortness of breath Cardiovascular: No chest pain Abdomen: + pain, + nausea, + vomiting, + constipation, No diarrhea, No GI bleeding Genitourinary - Female: No dysuria Endocrine: No fatigue Hematologic / Lymphatic: No abnormal bleeding/bruising Integumentary: No rash (Adali Tamayo, CEC) Physical Exam Date Time Temp Pulse Resp B/P (MAP) Pulse Ox O2 Delivery O2 Flow Rate FiO2 01/15/18 10:59 37.0 63 16 144/84 98 Room Air General Appearance: WD/WN, no apparent distress Head: normocephalic, atraumatic Eyes: sclerae normal ENT: hearing grossly normal Neck: trachea midline Respiratory/Chest: lungs clear, normal breath sounds, no respiratory distress, no accessory muscle use Cardiovascular: regular rate, rhythm, no murmur Abdomen/GI: soft, no organomegaly, no pulsatile mass, + tenderness (epigastric region), + distended (mildly distended) Back: normal inspection Extremities/Musculoskelatal: normal inspection, no pedal edema Neurologic/Psych: alert, normal mood/affect, oriented x 3 Skin: normal color, warm/dry, no rash (Adali Tamayo ., JERMAINE-C) Laboratory Results Last 24 Hours Test 01/15/18 11:23 01/15/18 11:40 White Blood Count 7.07 K/uL Red Blood Count 4.72 M/uL Hemoglobin 14.1 g/dL Hematocrit 42.2 % Mean Corpuscular Volume 89.4 fL Mean Corpuscular Hemoglobin 29.9 pg Mean Corpuscular Hemoglobin Concent 33.4 g/dl Platelet Count 207 K/uL Mean Platelet Volume 10.0 fL Neutrophils (%) (Auto) 59.0 % Lymphocytes (%) (Auto) 33.8 % Monocytes (%) (Auto) 6.2 % Eosinophils (%) (Auto) 0.8 % Basophils (%) (Auto) 0.1 % Neutrophils # (Auto) 4.16 K/uL Lymphocytes # (Auto) 2.39 K/uL Monocytes # (Auto) 0.44 K/uL Eosinophils # (Auto) 0.06 K/uL Basophils # (Auto) 0.01 K/uL RDW Standard Deviation 47.6 fL RDW Coefficient of Variation 14.6 % Immature Granulocyte % (Auto) 0.1 % Immature Granulocyte # (Auto) 0.01 K/uL Prothrombin Time 10.3 SECONDS Prothromb Time International Ratio 1.0 Sodium Level 139 mmol/L Potassium Level 4.1 mmol/L Chloride Level 108 mmol/L Carbon Dioxide Level 28 mmol/L Anion Gap 3.0 mmol/L Blood Urea Nitrogen 9 mg/dl Creatinine 0.73 mg/dl Est Creatinine Clear Calc Drug Dose 71.2 ml/min Estimated GFR () 106.7 Estimated GFR (Non- 92.1 BUN/Creatinine Ratio 11.8 Random Glucose 73 mg/dl Calcium Level 9.2 mg/dl Total Bilirubin 0.4 mg/dl Aspartate Amino Transf (AST/SGOT) 12 U/L Alanine Aminotransferase (ALT/SGPT) 15 U/L Alkaline Phosphatase 83 U/L Total Protein 7.8 gm/dl Albumin 4.0 gm/dl Globulin 3.8 gm/dl Albumin/Globulin Ratio 1.1 Lipase 90 U/L Urine Color YELLOW Urine Appearance CLEAR Urine pH 5.0 Urine Specific [place] 1.012 Urine Protein NEG Urine Glucose (UA) NEG Urine Ketones 1+ Urine Occult Blood NEG Urine Nitrite NEG Urine Bilirubin NEG Urine Urobilinogen NEG Urine Leukocyte Esterase NEG (Adali Tamayo .CEC) Assessment & Plan 57 year-old female with history of gastric bypass 10 years ago with bleeding ulcer 2 years ago presented originally to emergency room on 01/13/18 complaining of abdominal pain in the epigastric area with associated nausea and vomiting. CT scan showed possible partial small bowel obstruction with one loop of small bowel dilated at 3.5 cm near anastomosis. She represented today for direct admission due to symptoms not improving and inability to keep liquids down. Abdominal x-ray showing no signs of SBO and fecal retention still present. Abdomen with good bowel sounds, soft, mildly distended, tenderness in the epigastrium. No leukocytosis. Concern for possible Marginal ulcer given symptoms and history of bleeding ulcer. Has not had repeat EGD since last bleeding ulcer episode 2 years ago. Plan: No acute surgical intervention required. There is no evidence of SBO. Recommend GI consultation for upper endoscopy to evaluate for marginal ulcer. No evidence of GI bleeding Continue NPO Continue IV fluids, IV pain management, IV Zofran Continue IV Protonix Enemas for fecal retention/impaction Continue current medical management Dr. Infante has seen and examined patient. (Adali Tamayo ., CEC) Pt was seen and examined with JERMAINE Ulrich. She has a history of a francia en y gastric bypass (laparoscopic) 10 yrs ago with 130 lb weight loss, history of anastamotic gastric ulcer presenting with melena 2 yrs ago, and now with severe epigastric pain, nausea and vomiting as well as constipation seen on CT scan. Imaging a few days ago was suggestive of partial bowel blockage. Most recent xray shows nonobstructive bowel gas pattern. Her abdomen is benign - minimal tenderness, no bloating, active bowel tones. No sign of need for surgical intervention. I would recommend GI consult for repeat egd to assess her gastric ulcer. If this is negative and symptoms persist, could proceed to ugi and small bowel follow through to see if she is developing an anastamotic stricture. (Donna Infante MD)
--- NOTE | 2018-01-15 14:19 | Gastrointestinal Consultation ---
Gastrointestinal Consultation Date of Consultation: January 15, 2018 Attending Physician: Dr. George Consulting Physician: Dr. Franco Infante Reason for Consultation: Abdomen pain History of Present Illness Patient is a 57 year old female patient of Bucky Mendoza PA-C . She is S/P gastric bypass in 2006. She presented to the ED January [address] w/o IV or oral contrast questioned a partial SBO. She was discharged (per her preference), but because pain didn't improve by this morning she returned to the ED. Initially, about 2 months ago, she began to have vomiting about 1/2 hour after eating a large meal. In the past 10 days, epigastric pain has become constant and she has not been able to eat any solid foods. Sometimes dry heaving occurs even when she has tried to eat. She has been able to tolerate liquids - but only intermittently as they sometimes cause vomiting as well. No melena or hematochezia. No fevers/chills/sweats. Her most recent BM was about 2 days ago. Past Medical/Surgical History Past Medical History: 1. Obesity 2. GERD Past Surgical History: 1. RYGB in 2006 at [place]. 2. EGD 2 yrs ago with a ulcer. Done at [place]. 3. Colonoscopy one time she believes 6 yrs ago. 4. Hysterectomy 5. Bladder tack Social History Smoking Status: Current Every Day Smoker Marital Status: Housing Status: lives with family Allergies Coded Allergies: No Known Allergies (Unverified , 01/13/18) Current Medications Home Meds and Scripts Medications Dose Route/Sig Max Daily Dose Days Date Category Vicodin (5MG/300MG) (Hydrocodon/Acetaminophen 5MG/300MG) 1 Tab Tab 1 Tab PO Q6H PRN 01/13/18 Rx Zofran Odt (Ondansetron HCl) 8 Mg Soltab 8 Mg SL Q6H PRN 01/13/18 Rx Tylenol (Acetaminophen) 500 Mg Tab 1,000 Mg PO UD 01/13/18 Reported Protonix (Pantoprazole Sodium) 40 Mg Tab 40 Mg PO QAM 01/13/18 Reported Review of Systems Constitutional: No fever, No chills, No sweats, No weight loss, No weakness Eyes: No eye pain, No redness ENT: No sore throat, No trouble swallowing, No pain on swallowing Respiratory: No cough, No wheezing, No shortness of breath, No dyspnea on exertion Cardiac: No chest pain, No edema, No palpitations Abdomen: + see HPI Neuro: No memory loss, No weakness, No numbness/tingling, No vertigo, No balance problems Psych: No depression symptoms, No anxiety, No insomnia Heme: No abnormal bleeding/bruising, No night sweats Endo: No excessive thirst, No excessive urination Skin: No rash, No itch, No new/changing skin lesions, No jaundice Physical Exam Date Time Temp Pulse Resp B/P (MAP) Pulse Ox O2 Delivery O2 Flow Rate FiO2 01/15/18 10:59 37.0 63 16 144/84 98 Room Air General Appearance: + mild distress (epigastric discomfort) Eyes: normal inspection, EOMI Neck: supple, no adenopathy, thyroid normal Respiratory/Chest: chest non-tender, lungs clear, normal breath sounds, no accessory muscle use Cardiovascular: regular rate, rhythm, no JVD, no murmur Abdomen: normal bowel sounds, soft, no organomegaly, + tenderness (moderate epigastric tenderness) Extremities: normal inspection, no pedal edema, normal capillary refill Neurologic/Psych: alert, normal mood/affect, oriented x 3 Skin: normal color, no jaundice, warm/dry, no rash Laboratory Results Last 24 Hours Test 01/15/18 11:23 01/15/18 11:40 White Blood Count 7.07 K/uL Red Blood Count 4.72 M/uL Hemoglobin 14.1 g/dL Hematocrit 42.2 % Mean Corpuscular Volume 89.4 fL Mean Corpuscular Hemoglobin 29.9 pg Mean Corpuscular Hemoglobin Concent 33.4 g/dl Platelet Count 207 K/uL Mean Platelet Volume 10.0 fL Neutrophils (%) (Auto) 59.0 % Lymphocytes (%) (Auto) 33.8 % Monocytes (%) (Auto) 6.2 % Eosinophils (%) (Auto) 0.8 % Basophils (%) (Auto) 0.1 % Neutrophils # (Auto) 4.16 K/uL Lymphocytes # (Auto) 2.39 K/uL Monocytes # (Auto) 0.44 K/uL Eosinophils # (Auto) 0.06 K/uL Basophils # (Auto) 0.01 K/uL RDW Standard Deviation 47.6 fL RDW Coefficient of Variation 14.6 % Immature Granulocyte % (Auto) 0.1 % Immature Granulocyte # (Auto) 0.01 K/uL Prothrombin Time 10.3 SECONDS Prothromb Time International Ratio 1.0 Sodium Level 139 mmol/L Potassium Level 4.1 mmol/L Chloride Level 108 mmol/L Carbon Dioxide Level 28 mmol/L Anion Gap 3.0 mmol/L Blood Urea Nitrogen 9 mg/dl Creatinine 0.73 mg/dl Est Creatinine Clear Calc Drug Dose 71.2 ml/min Estimated GFR () 106.7 Estimated GFR (Non- 92.1 BUN/Creatinine Ratio 11.8 Random Glucose 73 mg/dl Calcium Level 9.2 mg/dl Total Bilirubin 0.4 mg/dl Aspartate Amino Transf (AST/SGOT) 12 U/L Alanine Aminotransferase (ALT/SGPT) 15 U/L Alkaline Phosphatase 83 U/L Total Protein 7.8 gm/dl Albumin 4.0 gm/dl Globulin 3.8 gm/dl Albumin/Globulin Ratio 1.1 Lipase 90 U/L Urine Color YELLOW Urine Appearance CLEAR Urine pH 5.0 Urine Specific [place] 1.012 Urine Protein NEG Urine Glucose (UA) NEG Urine Ketones 1+ Urine Occult Blood NEG Urine Nitrite NEG Urine Bilirubin NEG Urine Urobilinogen NEG Urine Leukocyte Esterase NEG Impression Patient is a 57 year old female with intermittent abdomen cramping, nausea, vomiting, sometimes post prandially. Differentials considered are ulcer disease , gallbladder disease, small bowel adhesions/stricture. Plan 1. RUQ US to r/o gallbladder disease. 2. EGD to be scheduled I saw and evaluated the patient. She presents for evaluation of abdominal discomfort which is been ongoing for several weeks. She notes having postprandial abdominal pain which lasts 40-60 minutes after meals. She denies any nausea but does note occasional emesis. Her past history is notable for a Bob-en-Y gastric bypass complicated by a marginal ulcer several years ago. Physical examination No obvious distress Mild right-sided abdominal tenderness Impression: History of abdominal discomfort in a patient with prior gastric bypass. I would suggest further evaluation quadrant ultrasound to look for evidence of gallstones. We would also recommend an upper endoscopy. She will likely be done on Thursday unless the patient is discharged over the weekend. Recommendations Protonix 40 mg 1 time daily Crafate 1 tablet twice daily Right upper quadrant ultrasound ordered Upper endoscopy to be scheduled
[2018-01-15 15:15] VITALS: BP 116/74; PULSE 59; TEMP 36.9; O2SAT 98
--- NOTE | 2018-01-15 15:31 | History and Physical ---
History & Physical Date & Time of Service: January 15, 2018 at 15:24 Chief Complaint: Abd Pain, Sbo Primary Care Physician: Bucky Mendoza PA-C History of Present Illness Patient presents as a direct admission of the office. She was in the emergency room on 01/13 with concern for small bowel obstruction. She was home and try to perform bowel rest without much success she is here with epigastric abdominal pain decreased oral intake decreased stool output Patient is a history of a gastric bypass almost 10 years ago she did have episode of GI ulcers that she feels that was associate with a gastric bypass she has not noted any melena but the pain is in epigastric in nature. A CT scan on 01/13 did show what was considered to possibly be a small bowel obstruction however repeat two-view abdomen here did not show anything consistent with that there however was a large stool burden noted mostly in the right-sided colon there is both a gastrointestinal in general surgical consult undertaken for the possibility of small bowel obstruction or problems probable anastomotic ulcers patient is currently being hydrated and given pain medications at this time with IV Protonix Past Medical/Surgical History Medical Problems: (1) Gastric ulcer (2) GI bleed (3) Partial small bowel obstruction (4) Upper abdominal pain (5) Vomiting Surgical Problems: (1) H/O gastric bypass Social History Smoking Status: Current Every Day Smoker Marital Status: Allergies Coded Allergies: No Known Allergies (Unverified , 01/13/18) Home Medications Scheduled Acetaminophen (Tylenol), 1,000 MG PO UD Pantoprazole Sodium (Protonix), 40 MG PO QAM Scheduled PRN Hydrocodon/Acetaminophen 5MG/300MG (Vicodin (5MG/300MG)), 1 TAB PO Q6H PRN for Pain Ondansetron Odt (Zofran Odt), 8 MG SL Q6H PRN for Nausea Review of Systems ROS: well nourished well developed. She does not appear markedly malnourished No double vision blurry vision No problems with speech or swallowing No palpitations, chest pain or pressure No Wheezing or breathing issues Central epigastric abdominal pain without nausea vomiting diarrhea or melena changes in appetite or weight No burning urine urine frequency or changes in color No focal joint pain or muscle pain No skin rashes or oral lesions No unusual bruising or bleeding No focused back pain or numbness or loss of strength No changes in memory or confusion Physical Exam Vital Signs Date Time Temp Pulse Resp B/P (MAP) Pulse Ox O2 Delivery O2 Flow Rate FiO2 01/15/18 10:59 37.0 63 16 144/84 98 Room Air General Appearance: WD/WN, + mild distress Head: normocephalic, atraumatic Eyes: normal inspection, PERRL, EOMI, sclerae normal Neck: supple, no JVD Respiratory/Chest: chest non-tender, lungs clear, normal breath sounds Cardiovascular: regular rate, rhythm, no murmur Abdomen/GI: normal bowel sounds, soft, + tenderness, + guarding Back: no CVA tenderness, no muscle spasm Extremities/Musculoskelatal: no pedal edema, normal range of motion Neurologic/Psych: alert, oriented x 3 Skin: normal color, warm/dry, no rash Diagnostics Laboratory Results Results Past 24 Hours Test 01/15/18 11:23 01/15/18 11:40 Range/Units White Blood Count 7.07 4.8-10.8 K/uL Red Blood Count 4.72 4.2-5.4 M/uL Hemoglobin 14.1 12.0-16.0 g/dL Hematocrit 42.2 37-47 % Mean Corpuscular Volume 89.4 80-100 fL Mean Corpuscular Hemoglobin 29.9 25-34 pg Mean Corpuscular Hemoglobin Concent 33.4 32-36 g/dl Platelet Count 207 130-400 K/uL Mean Platelet Volume 10.0 7.4-10.4 fL Neutrophils (%) (Auto) 59.0 % Lymphocytes (%) (Auto) 33.8 % Monocytes (%) (Auto) 6.2 % Eosinophils (%) (Auto) 0.8 % Basophils (%) (Auto) 0.1 % Neutrophils # (Auto) 4.16 1.4-6.5 K/uL Lymphocytes # (Auto) 2.39 1.2-3.4 K/uL Monocytes # (Auto) 0.44 0.11-0.59 K/uL Eosinophils # (Auto) 0.06 0-0.5 K/uL Basophils # (Auto) 0.01 0-0.2 K/uL RDW Standard Deviation 47.6 36.4-46.3 fL RDW Coefficient of Variation 14.6 11.5-14.5 % Immature Granulocyte % (Auto) 0.1 % Immature Granulocyte # (Auto) 0.01 0.00-0.02 K/uL Prothrombin Time 10.3 9.0-12.0 SECONDS Prothromb Time International Ratio 1.0 0.9-1.1 Sodium Level 139 136-145 mmol/L Potassium Level 4.1 3.5-5.1 mmol/L Chloride Level 108 98-107 mmol/L Carbon Dioxide Level 28 21-32 mmol/L Anion Gap 3.0 3-11 mmol/L Blood Urea Nitrogen 9 7-18 mg/dl Creatinine 0.73 0.60-1.20 mg/dl Est Creatinine Clear Calc Drug Dose 71.2 ml/min Estimated GFR () 106.7 Estimated GFR (Non- 92.1 BUN/Creatinine Ratio 11.8 10-20 Random Glucose 73 70-99 mg/dl Calcium Level 9.2 8.5-10.1 mg/dl Total Bilirubin 0.4 0.2-1 mg/dl Aspartate Amino Transf (AST/SGOT) 12 15-37 U/L Alanine Aminotransferase (ALT/SGPT) 15 12-78 U/L Alkaline Phosphatase 83 45-117 U/L Total Protein 7.8 6.4-8.2 gm/dl Albumin 4.0 3.4-5.0 gm/dl Globulin 3.8 2.5-4.0 gm/dl Albumin/Globulin Ratio 1.1 0.9-2 Lipase 90 73-393 U/L Urine Color YELLOW Urine Appearance CLEAR CLEAR Urine pH 5.0 4.5-7.5 Urine Specific [place] 1.012 1.000-1.030 Urine Protein NEG NEG Urine Glucose (UA) NEG NEG Urine Ketones 1+ NEG Urine Occult Blood NEG NEG Urine Nitrite NEG NEG Urine Bilirubin NEG NEG Urine Urobilinogen NEG NEG Urine Leukocyte Esterase NEG NEG Diagnostic Radiology 2 view abdomen does not show bowel obstruction constipation is noted Impression Assessment and Plan 57-year-old female previous history of gastric bypass surgery and gastrointestinal ulcers presents with epigastric abdominal pain and previous concern for small bowel obstruction Abdominal pain, small bowel obstruction was not noted on two-view abdomen there was however constipation noted her pain is however reminiscent of previous ulcer pain and there is consideration for endoscopy. Patient however is not anemic nor and there is no melena. Patient will begun on Protonix and Carafate. Gastroenterology feels an ultrasound of her upper quadrant quadrant may be warranted although she is unremarkable LFTs on presentation should be hydrated with fluids be provided with parenteral pain and antiemetic medications. General surgery also did evaluate the patient feels there is no surgical need in her abdomen Advanced Directives Existing Living Will: No Existing Power of Supervisor Nut Processing: No Resuscitation Status VTE Prophylaxis Will order VTE Prophylaxis: Yes
[2018-01-15] MEDS: NICOTINE 21 MG/24 HR TDSY TD SCH (15:59)
--- NOTE | 2018-01-15 17:07 | DIAGNOSTIC IMAGING REPORT ---
ABDOMEN LIMITED (US) HISTORY: 57 years-old Female RUQ US to r/o gallbladder disease acute right upper quadrant abdominal pain COMPARISON: CT 01/13/2018 TECHNIQUE: Multiple real-time sonographic images of the abdominal right upper quadrant were obtained assessing grayscale appearance and color flow FINDINGS: Pancreas is obscured by bowel gas. Liver measures up to 13.6 cm in length and appears unremarkable. No focal hepatic mass lesions are identified. Mild gallbladder distention without shadowing cholelithiasis, wall thickening or pericholecystic fluid. Sonographic Stevens sign reported as negative. Common bile duct is normal, 6 mm. Imaged right kidney is unremarkable without hydronephrosis. IMPRESSION: 1. Mild gallbladder distention without cholelithiasis or sonographic evidence of acute cholecystitis. 2. No biliary ductal dilation. The above report was generated using voice recognition software. It may contain grammatical, syntax or spelling errors. Electronically signed by: Ethan Vuong M.D. 01/15/2018 5:06 PM Dictated Date/Time: 01/15/2018 5:04 PM
[2018-01-15] MEDS: POLYETHYLENE (MIRALAX) 17 GM PACK PO SCH ×2 (17:59→23:55)
[2018-01-15] MEDS: SUCRALFATE 1 GM/10 ML UDC PO SCH (20:44)
[2018-01-15 23:08] VITALS: BP 112/69; PULSE 65; TEMP 36.9; O2SAT 98
[2018-01-16 05:52] LABS: HEMOGLOBIN 12.6 g/dL (12.0-16.0); MEAN CELL VOLUME 89.6 fL (80-100); MEAN CORPUSCULAR HEMOGLOBIN 29.7 pg (25-34); MEAN CORPUSCULAR HGB CONC 33.2 g/dl (32-36); MEAN PLATELET VOLUME 10.4 fL (7.4-10.4); PLATELET COUNT 193 K/uL (130-400); RED CELL DISTRIBUTION WIDTH CV 14.8 % (11.5-14.5); RED CELL DISTRIBUTION WIDTH SD 48.2 fL (36.4-46.3); WHITE BLOOD COUNT 5.22 K/uL (4.8-10.8)
[2018-01-16] MEDS: POLYETHYLENE (MIRALAX) 17 GM PACK PO SCH (05:53)
[2018-01-16] MEDS: SODIUM CHLORIDE 0.9% 1000ML 1,000 ML IV SCH (05:57)
[2018-01-16 06:24] LABS: CALCIUM 8.4 mg/dl (8.5-10.1); CREATININE 0.56 mg/dl (0.60-1.20)
[2018-01-16] MEDS: SUCRALFATE 1 GM/10 ML UDC PO SCH (07:35)
[2018-01-16] MEDS: NICOTINE 21 MG/24 HR TDSY TD SCH (07:36)
[2018-01-16 08:01] VITALS: O2SAT 96
[2018-01-16] MEDS: PANTOprazole INJ 40 MG in SYRINGE 0 ML IV SCH (08:14)
[2018-01-16 08:26] VITALS: BP 104/67; PULSE 63; TEMP 36.5; O2SAT 96
[2018-01-16] MEDS: LAVAGE SOLUTION 4000ML PO SCH ×2 (10:49→13:09)
--- NOTE | 2018-01-16 11:26 | Surgery Progress Note ---
Surgery Progress Note Date of Service January 16, 2018. Subjective Feels better. Tolerating clears. Pain improved. Taking golytely currently to try and have a bowel movement. Objective Vital Signs: Date Time Temp Pulse Resp B/P (MAP) Pulse Ox O2 Delivery O2 Flow Rate FiO2 01/16/18 08:26 36.5 63 16 104/67 (79) 96 Room Air 01/16/18 08:01 96 Room Air 01/15/18 23:50 Room Air 01/15/18 23:08 36.9 65 17 112/69 (83) 98 Room Air 01/15/18 16:30 Room Air 01/15/18 15:15 36.9 59 18 116/74 (88) 98 Room Air General Appearance: WD/WN, no apparent distress Respiratory/Chest: lungs clear, normal breath sounds Cardiovascular: regular rate, rhythm Abdomen: normal bowel sounds, non tender, non distended, soft Laboratory Results: Results Past 24 Hours Test 01/15/18 11:40 01/16/18 05:29 Range/Units Urine Color YELLOW Urine Appearance CLEAR CLEAR Urine pH 5.0 4.5-7.5 Urine Specific [place] 1.012 1.000-1.030 Urine Protein NEG NEG Urine Glucose (UA) NEG NEG Urine Ketones 1+ NEG Urine Occult Blood NEG NEG Urine Nitrite NEG NEG Urine Bilirubin NEG NEG Urine Urobilinogen NEG NEG Urine Leukocyte Esterase NEG NEG White Blood Count 5.22 4.8-10.8 K/uL Red Blood Count 4.24 4.2-5.4 M/uL Hemoglobin 12.6 12.0-16.0 g/dL Hematocrit 38.0 37-47 % Mean Corpuscular Volume 89.6 80-100 fL Mean Corpuscular Hemoglobin 29.7 25-34 pg Mean Corpuscular Hemoglobin Concent 33.2 32-36 g/dl RDW Standard Deviation 48.2 36.4-46.3 fL RDW Coefficient of Variation 14.8 11.5-14.5 % Platelet Count 193 130-400 K/uL Mean Platelet Volume 10.4 7.4-10.4 fL Sodium Level 141 136-145 mmol/L Potassium Level 4.0 3.5-5.1 mmol/L Chloride Level 112 98-107 mmol/L Carbon Dioxide Level 27 21-32 mmol/L Anion Gap 2.0 3-11 mmol/L Blood Urea Nitrogen 7 7-18 mg/dl Creatinine 0.56 0.60-1.20 mg/dl Est Creatinine Clear Calc Drug Dose 92.8 ml/min Estimated GFR () 120.8 Estimated GFR (Non- 104.2 BUN/Creatinine Ratio 12.7 10-20 Random Glucose 88 70-99 mg/dl Calcium Level 8.4 8.5-10.1 mg/dl Magnesium Level 2.1 1.8-2.4 mg/dl Assessment & Plan Likely flare of gastric ulcer (has had prior gastric bypass). Doing better on IV protonix. Also with constipation - taking golytely. No evidence of bowel blockage. Will sign off. As per pt, plan is for discharge later today and outpatient egd.
[2018-01-16] MEDS ORDERED: SUCRALFATE 1 GM/10 ML UDC PO SCH (13:00)
[2018-01-16] MEDS ORDERED: SUCR1TAB29 PO (14:28)
[2018-01-16] MEDS ORDERED: PANT40TA PO (14:28)
--- NOTE | 2018-01-16 14:29 | Discharge Instructions ---
Discharge Instructions Date of Service January 16, 2018. Admission Reason for Admission: Abd Pain, Sbo Discharge Discharge Diagnosis / Problem: suspected ulcer disease, constipation Discharge Goals Goal(s): Diagnostic testing, Therapeutic intervention Activity Recommendations Activity Limitations: as noted below Lifting Limitations: gradually increase as tolerated . Instructions / Follow-Up Instructions / Follow-Up Please take miralax to assure a daily bowel movement, it can be over the counter non brand necessary Current Hospital Diet Patient's current hospital diet: Full Liquid Diet Discharge Diet Recommended Diet: Regular Diet Pending Studies Studies pending at discharge: no Medical Emergencies . Who to Call and When: Medical Emergencies: If at any time you feel your situation is an emergency, please call 911 immediately. . Non-Emergent Contact Non-Emergency issues call your: Primary Care Provider Call Non-Emergent contact if: temperature is above 101, your pain is unusual for you . . "Provider Documentation" section prepared by Omar George. .
[2018-01-16 14:57] VITALS: BP 104/67; PULSE 63; TEMP 36.5; O2SAT 96
--- NOTE | 2018-01-16 16:39 | Discharge Summary ---
Discharge Summary Date of Service January 16, 2018. Discharge Summary Admission Date: January 15, 2018 at 10:36 Discharge Date: January 16, 2018 Discharge Disposition: Home Principal Diagnosis: suspected anastamatic ulcer, constipation Medication Reconciliation New Medications: Sucralfate (Carafate) 1 Gm Tab 1 GM PO QID, #28 TAB Changed Medications: Pantoprazole Sodium (Protonix) 40 Mg Tab 40 MG PO BID, #60 DOSE 3 Refills (Changed from: QAM; Refills: ) Continued Medications: Acetaminophen (Tylenol) 500 Mg Tab 1000 MG PO UD Hydrocodon/Acetaminophen 5MG/300MG (Vicodin (5MG/300MG)) 1 Tab Tab 1 TAB PO Q6H PRN for Pain, #30 TAB Ondansetron Odt (Zofran Odt) 8 Mg Soltab 8 MG SL Q6H PRN for Nausea, #30 TAB Discharge Exam Review of Systems: Constitutional: No fever, No chills Respiratory: No cough, No shortness of breath Cardiovascular: No chest pain, No edema Abdomen: No pain, No nausea, No vomiting, No diarrhea Genitourinary - Female: No dysuria, No urinary frequency Neurologic: No memory loss, No paralysis Psychiatric: No depression symptoms, No anhedonism Endocrine: No fatigue, No excessive thirst Physical Exam: General Appearance: WD/WN, no apparent distress Eyes: normal inspection, sclerae normal ENT: normal ENT inspection, pharynx normal Neck: supple, no JVD Respiratory/Chest: chest non-tender, lungs clear, normal breath sounds Cardiovascular: regular rate, rhythm, no murmur Abdomen / GI: normal bowel sounds, soft Neurologic/Psychiatric: alert, oriented x 3 Hospital Course 57-year-old female previous history of gastric bypass surgery and gastrointestinal ulcers presents with epigastric abdominal pain and previous concern for small bowel obstruction Abdominal pain, small bowel obstruction was not noted on two-view abdomen there was however constipation noted her pain is however reminiscent of previous ulcer pain and there is consideration for endoscopy. Patient however is not anemic nor and there is no melena. Patient will begun on Protonix and Carafate. Gastroenterology ordered an ultrasound of her upper quadrant quadrant which was unremarkable. she was offered an upper EGD if she stayed but after having a bowel movement and feeling better she was requesting to go home. She will be on bid ppi and one week of carafate qid with recommendations for miralax General surgery also did evaluate the patient feels there is no surgical need in her abdomen Total Time Spent: Greater than 30 minutes This includes examination of the patient, discharge planning, medication reconciliation, and communication with other providers. Discharge Instructions Please refer to the electronic Patient Visit Report (Discharge Instructions) for additional information.
[2018-01-16] MEDS ORDERED: PANTOprazole SOD 40 MG TAB PO SCH (21:00)
== END 2018-01-16 16:20 | disposition home or self-care (01) ==
LOC: C.MSW 10:36
PROVIDERS: ADMIT Internal Medicine; ATTEND Internal Medicine
DX: R10.13 Epigastric pain (principal); Z79.899 Other long term (current) drug therapy; Z98.84 Bariatric surgery status; F17.200 Nicotine dependence, unspecified, uncomplicated; Z68.21 Body mass index [BMI] 21.0-21.9, adult; E66.9 Obesity, unspecified; K21.9 Gastro-esophageal reflux disease without esophagitis; Z90.710 Acquired absence of both cervix and uterus